=== PATIENT | male | born 1990 | race Caucasian/White ===

== ENCOUNTER 2018-11-18 10:08 | Emergency (ER) | payer OTHER, BC ==
[~2018-11-18] VITALS: Ht 177.8 cm; Wt 72.6 kg
[2018-11-18] MEDS ORDERED: NORCO 5-325 TA1 EACH PO (12:27)
[2018-11-18] MEDS ORDERED: KEFLEX500 M1 PO (12:27)
[2018-11-18 12:45] VITALS: BP 130/85
== END 2018-11-18 12:47 | disposition home or self-care (01) ==
LOC: M.ERS 10:08
DX: S62.521A Displaced fracture of distal phalanx of right thumb, initial encounter for closed fracture (principal); S61.111A Laceration without foreign body of right thumb with damage to nail, initial encounter; W23.1XXA Caught, crushed, jammed, or pinched between stationary objects, initial encounter; Y92.89 Other specified places as the place of occurrence of the external cause; Y99.0 Civilian activity done for income or pay; Y99.8 Other external cause status

== ENCOUNTER 2018-12-06 08:17 | Emergency (ER) | payer OTHER, BC ==
[~2018-12-06] VITALS: Ht 177.8 cm; Wt 72.6 kg
[~2018-12-06 08:17] MED LIST: KEFLEX500 M1 PO; NORCO 5-325 TA1 EACH PO
[2018-12-06 08:46] VITALS: BP 147/96
== END 2018-12-06 08:44 | disposition home or self-care (01) ==
LOC: M.ERS 08:17
DX: S61.011D Laceration without foreign body of right thumb without damage to nail, subsequent encounter (principal); X58.XXXD Exposure to other specified factors, subsequent encounter